=== PATIENT | female | born 1960 | race Caucasian/White ===

== ENCOUNTER → 2023-06-24 07:54 | Outpatient (REF) | payer OTHER, SELFPAY | LOC: RAD 07:54 | PROVIDERS: ATTENDING PHYSICIAN Surgery Vascular Surgery; FAMILY PHYSICIAN Family Medicine | DX: M79.604 Pain in right leg (principal); I87.2 Venous insufficiency (chronic) (peripheral) | CPT/HCPCS: 93970 ==

== ENCOUNTER 2023-08-13 06:10 | Day surgery (SDC) | payer BC, SELFPAY ==
[2023-08-13] VITALS (8 sets, daily range): BP systolic 102–150; BP diastolic 61–98; BMI 33.3
[2023-08-13] MEDS: Pyridium 200 MG PO (07:40)
[2023-08-13] MEDS: NORMOSOL-R 1000 IV (07:53)
--- NOTE | 2023-08-13 12:43 | OR.RPT ---
Operative Report
Operative Report
Surgeon: Jovani Rice MD
Date of Surgery: 08/13/2023
Preoperative diagnosis:
1.� Post-void dribbling
2. Voiding dysfunction
Postoperative diagnosis:
1.���� Post-void dribbling
2.���� Voiding dysfunction
Procedure:
1. Revision of sling
2. Cystoscopy
Anesthesia:� General with LMA
Estimated blood loss:� 5 cc
Complications:� none
Findings:� Intraoperative cystourethroscopy revealed normal bladder mucosa throughout.� No evidence of cystotomy, sutures, lacerations, lesions, or mesh.� There was normal efflux of urine from bilateral ureteral orifices.� Normal urethra.
Indications:� Patient was complaining of difficulty with urination and post-void dribbling. Risks reviewed include nature of vaginal closure procedure, bleeding, infection, damage to bladder, ureter urethra, bowel, blood vessels, nerves, mesh
complications, post-operative urinary retention and post-operative urinary incontinence.� All questions answered and informed consent obtained.
Procedure:�
On day of surgery, patient properly identified in preoperative waiting area and informed consent of planned procedure again reviewed.� She was then taken to the operating room.� Sequential compression devices were placed on bilateral lower
extremities.� General anesthesia was induced without difficulty.� Ancef 2gm IV was given for antibiotic prophylaxis.� The patient was placed in dorsal lithotomy position with Valdez stirrups and prepped and draped in the usual sterile fashion.�
Surgical time-out was performed to review patient and procedure. Cobb catheter was placed in the bladder to drain it.
The revision of sling was performed as follows. The area of midurethral vaginal mucosa was then infiltrated with 1% lidocaine with [id number] epinephrine.� A vertical incision was made in the vaginal mucosa between the four Allis clamps using a
scalpel.� The sling was identified with careful dissection. The vaginal mucosa was dissected free from the underlying sling using Metzenbaum scissors.�� Mesh was also dissected carefully from underlying bladder and urethra.� The sling was incised in
the midline. The vaginal incision was closed with #2-0 Chromic running suture. �
Sponge, lap and needle counts were correct x 2. The patient was awaked and sent to the PACU in stable condition.
== END 2023-08-13 10:22 | disposition home or self-care (01) ==
LOC: SDS 06:10
PROVIDERS: ATTENDING PHYSICIAN Obstetrics & Gynecology
DX: N39.43 Post-void dribbling (principal); N39.3 Stress incontinence (female) (male)
CPT/HCPCS: 57287

== ENCOUNTER → 2023-08-29 14:25 | Outpatient (REF) | payer BC, SELFPAY | LOC: HWEVLT 14:25 | PROVIDERS: ATTENDING PHYSICIAN Radiology Vascular & Interventional Radiology | DX: I83.891 Varicose veins of right lower extremity with other complications (principal) | CPT/HCPCS: 36478 ==

== ENCOUNTER → 2023-09-10 15:20 | Outpatient (REF) | payer BC, SELFPAY | LOC: HWEVLT 15:20 | PROVIDERS: ATTENDING PHYSICIAN Radiology Vascular & Interventional Radiology | DX: I83.891 Varicose veins of right lower extremity with other complications (principal) | CPT/HCPCS: 93971 ==

== ENCOUNTER → 2023-09-24 08:56 | Outpatient (REF) | payer BC, SELFPAY | LOC: HWEVLT 08:56 | PROVIDERS: ATTENDING PHYSICIAN Radiology Diagnostic Radiology | DX: I83.891 Varicose veins of right lower extremity with other complications (principal) | CPT/HCPCS: 93971 ==

== ENCOUNTER → 2024-10-26 07:55 | Outpatient (REF) | payer MEDICARE, OTHER, SELFPAY | LOC: MRI 07:55 | PROVIDERS: ATTENDING PHYSICIAN Orthopaedic Surgery; FAMILY PHYSICIAN Family Medicine | DX: M77.02 Medial epicondylitis, left elbow (principal) | CPT/HCPCS: 73221 ==

== ENCOUNTER → 2024-10-30 09:15 | Outpatient (REF) | payer MEDICARE, OTHER, SELFPAY | LOC: RAD 09:15 | PROVIDERS: ATTENDING PHYSICIAN Family Medicine | DX: M79.604 Pain in right leg (principal); M79.605 Pain in left leg | CPT/HCPCS: 93922; 93970 ==